=== PATIENT | male | born 1995 | race Caucasian/White ===

== ENCOUNTER 2018-02-07 07:43 | Emergency (ER) | payer BC ==
[~2018-02-07] VITALS: Ht 175.3 cm; Wt 77.1 kg
[~2018-02-07 07:43] MED LIST: ACCUNEB SO1.25 MG/1; DOXYCYCLINE 10100 MG PO; IBUPROFEN 600600 M1 PO; PHENERGAN 25 MG25 MG PO; ZANTAC 150MG T150 MG; ZANTAC 150MG T150 MG PO
[2018-02-07 08:08] LABS: ABSOLUTE EOSINOPHILS 0.1 thou/uL (0.0-0.7); ABSOLUTE LYMPHOCYTES 1.1 thou/uL (0.8-5.3); ABSOLUTE MONOCYTES 0.4 thou/uL (0.0-1.2); ABSOLUTE NEUTROPHILS 4.2 thou/uL (1.6-8.1); BASOPHILS 0.5 %; EOSINOPHILS 1.1 %; HEMATOCRIT 51.8 % (42.0-52.0); HEMOGLOBIN 18.1 gm/dL (14.0-18.0); LYMPHOCYTES 19.7 %; MCH 33.1 pg (26.0-34.0); MCHC 34.9 g/dL (28.0-37.0); MONOCYTES 6.7 %; MPV 8.5 fl. (7.2-11.1); NUCLEATED RBCS 0 /100WBC; PLATELET COUNT* 199 thou/uL (150-400); RBC 5.45 mil/uL (4.50-6.00); RDW-CV 13.6 % (10.5-14.5); WBC 5.8 thou/uL (4.0-11.0)
[2018-02-07 08:09] LABS: URINE BILIRUBIN NEGATIVE (Negative); URINE BLOOD NEGATIVE (Negative); URINE CLARITY CLEAR; URINE COLOR YELLOW; URINE GLUCOSE-RANDOM NEGATIVE (Negative); URINE KETONES TRACE (Negative); URINE LEUKOCYTES-REFLEX NEGATIVE (Negative); URINE NITRITE-REFLEX NEGATIVE (Negative); URINE PROTEIN TRACE (Negative); URINE SPECIFIC GRAVITY 1.015 (1.005-1.030); URINE UROBILINOGEN 0.2 E.U./dl (0.2-1.0)
[2018-02-07 08:18] LABS: CALCIUM 9.6 mg/dL (8.5-10.1); CREATININE 0.8 mg/dL (0.6-1.3); POTASSIUM 3.6 mmol/L (3.5-5.1)
[2018-02-07 08:19] LABS: AMP/METHAMP POSITIVE (Negative); BARBITURATES Negative (Negative); BENZODIAZEPINES POSITIVE (Negative); COCAINE Negative (Negative); METHADONE Negative (Negative); OPIATES POSITIVE (Negative); PCP Negative (Negative); THC POSITIVE (Negative)
[2018-02-07 08:23] LABS: ALBUMIN 4.2 g/dL (3.4-5.0); TOTAL BILIRUBIN 0.4 mg/dL (<0.1-1.0); TOTAL PROTEIN 7.6 g/dL (6.4-8.2)
[2018-02-07 09:00] VITALS: BP 119/70
[2018-02-07 09:49] LABS: APTT 29.1 Seconds (25.0-31.3); PROTIME 10.5 Seconds (9.20-11.50)
== END 2018-02-07 09:57 | disposition left against medical advice (07) ==
LOC: M.ERS 07:43
PROVIDERS: Personal Emergency Response Attendant
DX: R10.9 Unspecified abdominal pain (principal); R11.2 Nausea with vomiting, unspecified; E86.0 Dehydration; K21.9 Gastro-esophageal reflux disease without esophagitis; J45.990 Exercise induced bronchospasm; F41.9 Anxiety disorder, unspecified; F17.210 Nicotine dependence, cigarettes, uncomplicated

== ENCOUNTER 2019-07-16 05:35 | Emergency (ER) | payer BC ==
[~2019-07-16] VITALS: Ht 172.7 cm; Wt 90.7 kg
[2019-07-16] MEDS ORDERED: ALPRAZOLAM XR3 MG PO (05:41)
[2019-07-16] MEDS ORDERED: ZYPREXA20 MG PO (05:41)
[2019-07-16 06:35] LABS: URINE BLOOD 3+ (Negative); URINE CLARITY SL CLOUDY; URINE COLOR BROWN; URINE GLUCOSE-RANDOM NEGATIVE (Negative); URINE KETONES NEGATIVE (Negative); URINE LEUKOCYTES-REFLEX NEGATIVE (Negative); URINE PROTEIN 2+ (Negative); URINE SPECIFIC GRAVITY >= 1.030 (1.005-1.030)
[2019-07-16 06:37] LABS: ICTOTEST (BILI CONFIRMATORY) Negative (Negative); URINE BILIRUBIN 2+ (Negative); URINE NITRITE-REFLEX POSITIVE (Negative)
[2019-07-16 06:42] LABS: ABSOLUTE EOSINOPHILS 0.1 thou/uL (0.0-0.7); ABSOLUTE LYMPHOCYTES 0.7 thou/uL (0.8-5.3); ABSOLUTE MONOCYTES 0.5 thou/uL (0.0-1.2); ABSOLUTE NEUTROPHILS 5.6 thou/uL (1.6-8.1); BASOPHILS 0.3 %; EOSINOPHILS 1.1 %; HEMATOCRIT 42.9 % (42.0-52.0); LYMPHOCYTES 10.6 %; MCH 33.7 pg (26.0-34.0); MCV 96.2 fL (80.0-100.0); MONOCYTES 6.8 %; MPV 8.2 fl. (7.2-11.1); NUCLEATED RBCS 0 /100WBC; PLATELET COUNT* 162 thou/uL (150-400); POLYS 81.2 %; RBC 4.46 mil/uL (4.50-6.00); RDW-CV 14.1 % (10.5-14.5); WBC 6.9 thou/uL (4.0-11.0)
[2019-07-16 06:44] LABS: SQUAMOUS 0-3 Few /LPF (0-3)
[2019-07-16 06:45] LABS: BACTERIA-REFLEX 1-9 Few /HPF (None Seen); CASTS None Seen /LPF (None Seen); CRYSTALS None Seen /LPF (None Seen); MUCUS None Seen strn/LPF (None Seen); URINE RBC >20 Many /HPF (0-2); URINE WBC-REFLEX 0-5 Rare /HPF (0-5)
[2019-07-16] MEDS ORDERED: ZOFRAN ODT4 MG PO (06:47)
[2019-07-16] MEDS ORDERED: HYDROCODON-ACE1 EAC8 PO (06:47)
[2019-07-16] MEDS ORDERED: FLOMAX0.4 MG PO (06:47)
[2019-07-16] MEDS ORDERED: FLEXERIL PO (06:47)
[2019-07-16 06:48] LABS: CREATININE 0.9 mg/dL (0.6-1.3); POTASSIUM 3.4 mmol/L (3.5-5.1)
[2019-07-16 06:50] VITALS: BP 142/88
== END 2019-07-16 07:19 | disposition home or self-care (01) ==
LOC: M.ERS 05:35
PROVIDERS: Emergency Medicine
DX: N20.1 Calculus of ureter (principal); R11.2 Nausea with vomiting, unspecified; K21.9 Gastro-esophageal reflux disease without esophagitis; J45.909 Unspecified asthma, uncomplicated; F17.210 Nicotine dependence, cigarettes, uncomplicated

== ENCOUNTER 2019-07-21 21:13 | Emergency (ER) | payer BC ==
[~2019-07-21] VITALS: Ht 172.7 cm; Wt 90.7 kg
[~2019-07-21 21:13] MED LIST changes: +ALPRAZOLAM XR3 MG PO; +FLEXERIL PO; +FLOMAX0.4 MG PO; +HYDROCODON-ACE1 EAC8 PO; +ZOFRAN ODT4 MG PO; +ZYPREXA20 MG PO
[2019-07-21 21:37] LABS: HEMATOCRIT 45.9 % (42.0-52.0); HEMOGLOBIN 16.1 gm/dL (14.0-18.0); MCH 33.7 pg (26.0-34.0); MCV 96.1 fL (80.0-100.0); MPV 8.3 fl. (7.2-11.1); NUCLEATED RBCS 0 /100WBC; PLATELET COUNT* 211 thou/uL (150-400); RBC 4.77 mil/uL (4.50-6.00); RDW-CV 13.8 % (10.5-14.5); WBC 11.4 thou/uL (4.0-11.0)
[2019-07-21 21:43] LABS: CALCIUM 8.9 mg/dL (8.5-10.1); CREATININE 1.1 mg/dL (0.6-1.3)
[2019-07-21 22:22] LABS: URINE BILIRUBIN NEGATIVE (Negative); URINE BLOOD 3+ (Negative); URINE CLARITY CLEAR; URINE COLOR YELLOW; URINE GLUCOSE-RANDOM NEGATIVE (Negative); URINE KETONES NEGATIVE (Negative); URINE LEUKOCYTES-REFLEX NEGATIVE (Negative); URINE NITRITE-REFLEX NEGATIVE (Negative); URINE PROTEIN NEGATIVE (Negative); URINE UROBILINOGEN 0.2 E.U./dl (0.2-1.0)
[2019-07-21 22:31] LABS: AMORPHOUS PHOSPHATES Many /LPF (None Seen); BACTERIA-REFLEX 1-9 Few /HPF (None Seen); CASTS None Seen /LPF (None Seen); MUCUS 4-6 Moderate strn/LPF (None Seen); SQUAMOUS 0-3 Few /LPF (0-3); URINE WBC-REFLEX None Seen /HPF (0-5)
[2019-07-21] MEDS ORDERED: HYDROCODON-ACE1 EAC8 PO (22:40)
[2019-07-21 22:55] VITALS: BP 135/70
[2019-07-21 23:37] LABS: ABSOLUTE EOSINOPHILS 0.2 thou/uL (0.0-0.7); ABSOLUTE LYMPHOCYTES 1.6 thou/uL (0.8-5.3); ABSOLUTE MONOCYTES 0.7 thou/uL (0.0-1.2); ABSOLUTE NEUTROPHILS 8.9 thou/uL (1.6-8.1); PLATELET ESTIMATE ADEQUATE
[2019-07-21 23:38] LABS: TOXIC GRANULATION 1+
== END 2019-07-21 22:55 | disposition home or self-care (01) ==
LOC: M.ERS 21:13
PROVIDERS: Emergency Medicine
DX: N20.0 Calculus of kidney (principal); K21.9 Gastro-esophageal reflux disease without esophagitis; F41.9 Anxiety disorder, unspecified; F17.210 Nicotine dependence, cigarettes, uncomplicated

== ENCOUNTER 2019-11-05 12:05 | Emergency (ER) | payer BC ==
[~2019-11-05] VITALS: Ht 172.7 cm; Wt 90.7 kg
[2019-11-05] MEDS ORDERED: XANAX1 MG PO (12:17)
[2019-11-05 13:30] VITALS: BP 140/93
== END 2019-11-05 13:31 | disposition left against medical advice (07) ==
LOC: M.ERS 12:05
DX: R68.84 Jaw pain (principal); F12.90 Cannabis use, unspecified, uncomplicated; F17.210 Nicotine dependence, cigarettes, uncomplicated; K21.9 Gastro-esophageal reflux disease without esophagitis; Z79.899 Other long term (current) drug therapy; Z86.73 Personal history of transient ischemic attack (TIA), and cerebral infarction without residual deficits; Y04.0XXA Assault by unarmed brawl or fight, initial encounter; Y93.89 Activity, other specified; Y92.89 Other specified places as the place of occurrence of the external cause; Y99.9 Unspecified external cause status

== ENCOUNTER 2020-01-19 17:43 | Emergency (ER) | payer BC ==
[~2020-01-19] VITALS: Ht 170.2 cm; Wt 77.1 kg
[~2020-01-19 17:43] MED LIST changes: +XANAX1 MG PO
[2020-01-19] MEDS ORDERED: ZYPREXA2.5 MG PO (17:54)
[2020-01-19] MEDS ORDERED: AMBIEN 10 MG TA10 MG PO (17:55)
[2020-01-19] MEDS ORDERED: FLEXERIL PO (19:58)
[2020-01-19 20:21] VITALS: BP 140/70
== END 2020-01-19 20:21 | disposition home or self-care (01) ==
LOC: M.ERS 17:43
DX: S16.1XXA Strain of muscle, fascia and tendon at neck level, initial encounter (principal); S09.8XXA Other specified injuries of head, initial encounter; M25.511 Pain in right shoulder; U07.1 COVID-19; J45.909 Unspecified asthma, uncomplicated; K21.9 Gastro-esophageal reflux disease without esophagitis; V89.2XXA Person injured in unspecified motor-vehicle accident, traffic, initial encounter; Y93.89 Activity, other specified; Y92.89 Other specified places as the place of occurrence of the external cause; Y99.8 Other external cause status

== ENCOUNTER 2020-06-15 14:05 | Emergency (ER) | payer BC ==
[~2020-06-15] VITALS: Ht 172.7 cm; Wt 90.7 kg
[~2020-06-15 14:05] MED LIST changes: +AMBIEN 10 MG TA10 MG PO; +ZYPREXA2.5 MG PO
[2020-06-15 14:46] LABS: ABSOLUTE EOSINOPHILS 0.2 thou/uL (0.0-0.7); ABSOLUTE LYMPHOCYTES 1.1 thou/uL (0.8-5.3); ABSOLUTE MONOCYTES 0.6 thou/uL (0.0-1.2); ABSOLUTE NEUTROPHILS 6.4 thou/uL (1.6-8.1); BASOPHILS 0.5 %; EOSINOPHILS 2.1 %; HEMATOCRIT 49.1 % (42.0-52.0); HEMOGLOBIN 16.7 gm/dL (14.0-18.0); LYMPHOCYTES 13.5 %; MCH 32.4 pg (26.0-34.0); MCV 95.2 fL (80.0-100.0); MONOCYTES 7.2 %; NUCLEATED RBCS 0 /100WBC; PLATELET COUNT* 205 thou/uL (150-400); POLYS 76.7 %; RBC 5.16 mil/uL (4.50-6.00); RDW-CV 13.9 % (10.5-14.5); WBC 8.4 thou/uL (4.0-11.0)
[2020-06-15 14:58] LABS: URINE BILIRUBIN NEGATIVE (Negative); URINE BLOOD NEGATIVE (Negative); URINE CLARITY CLEAR; URINE COLOR YELLOW; URINE GLUCOSE-RANDOM NEGATIVE (Negative); URINE KETONES NEGATIVE (Negative); URINE LEUKOCYTES-REFLEX NEGATIVE (Negative); URINE NITRITE-REFLEX NEGATIVE (Negative); URINE PROTEIN NEGATIVE (Negative); URINE SPECIFIC GRAVITY <= 1.005 (1.005-1.030); URINE UROBILINOGEN 0.2 E.U./dl (0.2-1.0)
[2020-06-15 14:59] LABS: CALCIUM 8.9 mg/dL (8.5-10.1); CREATININE 1.1 mg/dL (0.6-1.3); POTASSIUM 3.2 mmol/L (3.5-5.1)
[2020-06-15 15:07] LABS: APTT 30.3 Seconds (25.0-31.3); PROTIME 10.7 Seconds (9.20-11.50)
[2020-06-15 15:08] LABS: AMP/METHAMP Negative (Negative); BARBITURATES Negative (Negative); BENZODIAZEPINES POSITIVE (Negative); COCAINE Negative (Negative); METHADONE Negative (Negative); OPIATES POSITIVE (Negative); PCP Negative (Negative); THC POSITIVE (Negative)
[2020-06-15 15:10] LABS: ALBUMIN 4.2 g/dL (3.4-5.0); MAGNESIUM 1.6 mg/dL (1.8-2.4); TOTAL PROTEIN 7.9 g/dL (6.4-8.2)
[2020-06-15 16:45] VITALS: BP 132/65
--- NOTE | 2020-06-16 09:37 | EKG ---
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
--- NOTE | 2020-06-16 13:34 | EKG ---
[place] [address] ELECTROCARDIOGRAM REPORT Name: SEVERO CLAROS Room: [facility] ([place] [place])#: [id number] Admission: 06/15/20 Attend Phys: Discharge: 06/15/20 Date of : [birth year] Date of Service: 06/15/20 1413 Report #: [id number] THIS REPORT FOR: //name// 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[facility] : 1995 Requested By: Andrea Pham Order Number: [id number] MD: Daniel Hicks Measurements Intervals [place] Rate: 99 P: 18 NV: 138 QRS: 51 QRSD: 95 T: -1 QT: 334 QTc: 429 Interpretive Statements Sinus rhythm Borderline ST elevation, suspect early repolarization No previous ECG available for comparison Electronically Signed On 06-16-2020 13:34:47 CDT by Daniel Hicks [email or web address] <ELECTRONICALLY SIGNED> By: Daniel Hicks MD, [facility] 06/16/20 1334 1413 1413 Daniel Hicks MD, [facility] /EPI
== END 2020-06-15 16:46 | disposition home or self-care (01) ==
LOC: M.ERS 14:05
PROVIDERS: Emergency Medicine Emergency Medical Services
DX: R07.89 Other chest pain (principal); K21.9 Gastro-esophageal reflux disease without esophagitis; F17.210 Nicotine dependence, cigarettes, uncomplicated; Z79.899 Other long term (current) drug therapy

== ENCOUNTER 2021-02-11 13:41 | Emergency (ER) | payer BC ==
[~2021-02-11] VITALS: Ht 172.7 cm; Wt 81.7 kg
[2021-02-11 14:23] LABS: INFLUENZA A ANTIGEN Positive (Negative); INFLUENZA B ANTIGEN Negative (Negative)
[2021-02-11] MEDS ORDERED: NAPROSYN500 MG PO (15:04)
[2021-02-11] MEDS ORDERED: ONDANSETRON ODT4 MG PO (15:04)
[2021-02-11] MEDS ORDERED: PROAIR HFA8.5 GM INH (15:04)
[2021-02-11 15:14] VITALS: BP 125/70
== END 2021-02-11 15:15 | disposition home or self-care (01) ==
LOC: M.ERS 13:41
PROVIDERS: Physician Assistant
DX: J09.X2 Influenza due to identified novel influenza A virus with other respiratory manifestations (principal); Z20.822 Contact with and (suspected) exposure to COVID-19; K21.9 Gastro-esophageal reflux disease without esophagitis; F41.9 Anxiety disorder, unspecified; F17.210 Nicotine dependence, cigarettes, uncomplicated; Z90.89 Acquired absence of other organs; Z79.899 Other long term (current) drug therapy

== ENCOUNTER 2021-02-18 06:46 | Emergency (ER) | payer BC ==
[~2021-02-18] VITALS: Ht 175.3 cm; Wt 90.7 kg
[~2021-02-18 06:46] MED LIST changes: +NAPROSYN500 MG PO; +ONDANSETRON ODT4 MG PO; +PROAIR HFA8.5 GM INH
[2021-02-18 07:41] LABS: INFLUENZA A ANTIGEN Negative (Negative); INFLUENZA B ANTIGEN Negative (Negative)
[2021-02-18 07:53] VITALS: BP 124/78
--- NOTE | 2021-02-19 09:22 | EKG ---
[place] [address] ELECTROCARDIOGRAM REPORT Name: SEVERO CLAROS Room: [facility]#: [id number] Admission: 02/18/21 Attend Phys: Discharge: 02/18/21 Date of : [birth year] Date of Service: 02/18/21 0656 Report #: [id number] THIS REPORT FOR: //name// [facility] ED Test Date: 2021-02-18 Test Time: 06:56:26 Pat Name: SEVERO CLAROS Department: Room: Gender: Sectionizer: : 1995 Requested By: Giovanni Holland Order Number: [id number] MD: Saw Bird Measurements Intervals [place] Rate: 88 P: 51 VT: 131 QRS: 57 QRSD: 101 T: 24 QT: 383 QTc: 464 Interpretive Statements Sinus rhythm Compared to ECG 06/15/2020 16:14:30 No significant changes Electronically Signed On 02-19-2021 9:22:19 VOICE TEACHER by Saw Bird [email or web address] <ELECTRONICALLY SIGNED> By: Saw Bird MD, [facility] 02/19/21 0922 0656 0656 Saw Bird MD, [facility] /EPI
== END 2021-02-18 07:55 | disposition left against medical advice (07) ==
LOC: M.ERS 06:46
PROVIDERS: Emergency Medicine
DX: R06.02 Shortness of breath (principal); Z20.822 Contact with and (suspected) exposure to COVID-19; K21.9 Gastro-esophageal reflux disease without esophagitis; F41.9 Anxiety disorder, unspecified; J45.909 Unspecified asthma, uncomplicated; F17.210 Nicotine dependence, cigarettes, uncomplicated; Z79.899 Other long term (current) drug therapy